=== PATIENT | male | born 1980 | race Caucasian/White ===

== ENCOUNTER 2017-03-04 06:40 | Inpatient (IN) | payer MEDICAID ==
[~2017-03-04] VITALS: Ht 172.7 cm; Wt 73.6 kg
[2017-03-04] MEDS ORDERED: ALBUTEROL SULFATE 2.5 MG/3 ML ONE (07:41)
[2017-03-04] MEDS ORDERED: ALBUTEROL SULFATE 2.5 MG/3 ML NPPB ONE (08:00)
[2017-03-04 08:58] LABS: BLOOD UREA NITROGEN 16 mg/dL (7-18)
[2017-03-04 09:06] LABS: IS PT STATUS REG ER OR PRE ER? YES
[2017-03-04] MEDS ORDERED: SODIUM CHLORIDE FLUSH 10ML SYR IVF ONE (11:00)
[2017-03-04] MEDS ORDERED: FUROSEMIDE 40 MG/4 ML IVPush ONE (11:00)
[2017-03-04] MEDS ORDERED: ASPIRIN 81 MG TABLET CHEW PO ONE (11:00)
[2017-03-04] MEDS ORDERED: NITROGLYCERIN OINT 2%, 1GM TP ONE ×2 (11:00→11:05)
[2017-03-04] MEDS ORDERED: FUROSEMIDE 40 MG/4 ML ONE (11:05)
[2017-03-04] MEDS ORDERED: ASPIRIN 81 MG TABLET CHEW ONE (11:05)
[2017-03-04 13:54] VITALS: BP 146/90
[2017-03-04 16:40] VITALS: BP 144/75
[2017-03-04] MEDS: ENOXAPARIN 40 MG/0.4 ML SQ SCH (16:43)
[2017-03-04] MEDS: LISINOPRIL 10 MG TABLET PO SCH (16:44)
[2017-03-04 16:51] LABS: IS PT STATUS REG ER OR PRE ER? NO
[2017-03-04 16:52] LABS: DAU SCREEN DISCLAIMER
[2017-03-04] MEDS ORDERED: METHOCARBAMOL 750 MG TABLET PO ONE (17:30)
[2017-03-04 17:59] VITALS: BP 134/76
[2017-03-04] MEDS ORDERED: ACETAMINOPHEN 325 MG TABLET ONE (18:38)
[2017-03-04] MEDS: ACETAMINOPHEN 325 MG TABLET PO PRN (18:40)
[2017-03-04] MEDS: CARVEDILOL 6.25 MG TABLET PO SCH (18:40)
[2017-03-04 19:11] VITALS: BP 143/91
[2017-03-04] MEDS ORDERED: PNEUMOCOCCAL 23 VACCINE IM-VACC ONE (20:00)
[2017-03-04 21:24] LABS: IS PT STATUS REG ER OR PRE ER? NO
[2017-03-05 04:00] VITALS: BP 126/86
[2017-03-05] MEDS: ACETAMINOPHEN 325 MG TABLET PO PRN (04:43)
[2017-03-05] MEDS: ASPIRIN 325 MG TABLET EC PO SCH (04:43)
[2017-03-05] MEDS: CARVEDILOL 6.25 MG TABLET PO SCH ×2 (04:43→18:33)
[2017-03-05 05:49] LABS: BLOOD UREA NITROGEN 19 mg/dL (7-18)
[2017-03-05 06:00] LABS: IS PT STATUS REG ER OR PRE ER? NO
[2017-03-05 07:17] VITALS: BP 118/82
[2017-03-05] MEDS: FUROSEMIDE 20 MG/2 ML IVPush SCH (09:18)
[2017-03-05 11:43] LABS: IS PT STATUS REG ER OR PRE ER? NO
[2017-03-05 13:57] VITALS: BP 145/93
[2017-03-05] MEDS: LISINOPRIL 10 MG TABLET PO SCH (14:17)
[2017-03-05 16:24] LABS: IS PT STATUS REG ER OR PRE ER? NO
[2017-03-05] MEDS: ENOXAPARIN 40 MG/0.4 ML SQ SCH (18:35)
[2017-03-05 19:17] VITALS: BP 91/70
[2017-03-05 21:29] LABS: IS PT STATUS REG ER OR PRE ER? NO
[2017-03-06 01:45] VITALS: BP 134/95
[2017-03-06] MEDS: CARVEDILOL 6.25 MG TABLET PO SCH ×2 (06:05→17:32)
[2017-03-06] MEDS: ASPIRIN 325 MG TABLET EC PO SCH (06:06)
[2017-03-06 06:24] LABS: BLOOD UREA NITROGEN 24 mg/dL (7-18)
[2017-03-06] MEDS: LISINOPRIL 10 MG TABLET PO SCH (08:39)
[2017-03-06 08:46] VITALS: BP 135/91
[2017-03-06] MEDS: FUROSEMIDE 20 MG/2 ML IVPush SCH (08:46)
[2017-03-06] MEDS ORDERED: FURO40TA6 PO (11:07)
[2017-03-06] MEDS ORDERED: LISI-167 PO (11:07)
[2017-03-06] MEDS ORDERED: CARV6.2512 PO (11:07)
[2017-03-06] MEDS ORDERED: POTA10TA90 PO (11:08)
[2017-03-06] MEDS ORDERED: SODIUM CHLORIDE 0.9%, 250ML IVBOLUS ONE (13:00)
[2017-03-06 15:05] VITALS: BP 127/75
[2017-03-06] MEDS: ENOXAPARIN 40 MG/0.4 ML SQ SCH (17:32)
[2017-03-06 17:33] VITALS: BP 110/77
== END 2017-03-06 19:03 | disposition home or self-care (01) | DRG 292 ==
LOC: ED 09:40 → EDIP 11:44 → 5SO 13:52
PROVIDERS: ADMIT Family Medicine; ATTEND Family Medicine
DX: I11.0 Hypertensive heart disease with heart failure (principal); E44.1 Mild protein-calorie malnutrition; I50.40 Unspecified combined systolic (congestive) and diastolic (congestive) heart failure; F15.10 Other stimulant abuse, uncomplicated; F12.90 Cannabis use, unspecified, uncomplicated; Z83.3 Family history of diabetes mellitus; Z83.79 Family history of other diseases of the digestive system; D72.829 Elevated white blood cell count, unspecified; Z71.6 Tobacco abuse counseling; Z68.24 Body mass index [BMI] 24.0-24.9, adult
CPT/HCPCS: 36415; 71020; 80048; 80307; 82040; 83735; 83880; 84443; 84484; 85025; 93005; 93306; 94640; 96374; J1650; J1940; J7613; J7050

== ENCOUNTER 2017-04-03 07:22 | Emergency (ER) | payer SELFPAY ==
[~2017-04-03] VITALS: Ht 172.7 cm; Wt 73.9 kg
[~2017-04-03 07:22] MED LIST: CARV6.2512 PO; FURO40TA6 PO; LISI-167 PO; POTA10TA90 PO
[2017-04-03 07:24] VITALS: BP 136/90
== END 2017-04-03 08:53 | disposition home or self-care (01) ==
LOC: ED 08:30
DX: Z00.00 Encounter for general adult medical examination without abnormal findings (principal); Z76.0 Encounter for issue of repeat prescription; I50.9 Heart failure, unspecified
CPT/HCPCS: 99283

== ENCOUNTER 2017-08-07 01:27 | Inpatient (IN) | payer MEDICAID ==
[~2017-08-07] VITALS: Ht 172.7 cm; Wt 76.5 kg
[~2017-08-07 01:27] MED LIST changes: +POTA10TA6 PO; -POTA10TA90 PO
[2017-08-07 02:29] LABS: HEMATOCRIT 47.3 % (39.2-51.8); HEMOGLOBIN 15.6 g/dL (13.7-18.0); WHITE BLOOD COUNT 11.1 x10^3/uL (3.4-10)
[2017-08-07 02:41] LABS: BLOOD UREA NITROGEN 22 mg/dL (7-18)
[2017-08-07 02:45] LABS: IS PT STATUS REG ER OR PRE ER? YES
[2017-08-07] MEDS ORDERED: ENALAPRILAT 1.25 MG/ML, 2ML IV ONE (03:00)
[2017-08-07] MEDS ORDERED: ENALAPRILAT 1.25 MG/ML, 2ML ONE (03:06)
[2017-08-07] MEDS ORDERED: FUROSEMIDE 20 MG/2 ML ONE (03:06)
[2017-08-07] MEDS ORDERED: ACETAMINOPHEN 650 MG/20.3 ML UDC PO PRN (03:30)
[2017-08-07] MEDS ORDERED: ONDANSETRON 2MG/ML, 2ML IVPush PRN (03:30)
[2017-08-07] MEDS ORDERED: LORazepam 2 MG/ML, 1ML IVPush PRN (03:30)
[2017-08-07] MEDS ORDERED: NITROGLYCERIN 0.4 MG BOTTLE (25 TABS) SL PRN (03:30)
[2017-08-07] MEDS ORDERED: hydrALAzine 20 MG/ML, 1ML IVPush PRN (03:30)
[2017-08-07] MEDS ORDERED: SODIUM CHLORIDE FLUSH 10ML SYR IVF PRN (03:30)
[2017-08-07] MEDS ORDERED: ONDANSETRON 2MG/ML, 2ML IV PRN (03:30)
[2017-08-07] MEDS ORDERED: FUROSEMIDE 20 MG/2 ML IVPush ONE (03:30)
[2017-08-07 04:48] VITALS: BP 135/106
[2017-08-07] MEDS ORDERED: BUMETANIDE 0.25 MG/ML, 4ML IV SCH (06:00)
[2017-08-07] MEDS: CARVEDILOL 6.25 MG TABLET PO SCH ×2 (06:14→18:24)
[2017-08-07 06:20] VITALS: BP 124/88
[2017-08-07 08:00] VITALS: BP 145/85
[2017-08-07 08:57] LABS: BLOOD UREA NITROGEN 18 mg/dL (7-18)
[2017-08-07] MEDS: SODIUM CHLORIDE FLUSH 10ML SYR IVF SCH ×2 (09:39→21:46)
[2017-08-07] MEDS: LISINOPRIL 10 MG TABLET PO SCH (09:39)
[2017-08-07] MEDS: POTASSIUM CHLORIDE 10 MEQ TABLET.ER PO SCH (09:39)
[2017-08-07 09:47] LABS: DAU SCREEN DISCLAIMER
[2017-08-07 13:58] VITALS: BP 127/91
[2017-08-07] MEDS ORDERED: OMNIPAQUE 350 MG/ML, 100ML BOTTLE ONE (15:00)
[2017-08-07 15:31] VITALS: BP 146/84
[2017-08-07 19:22] VITALS: BP 132/89
[2017-08-07] MEDS ORDERED: NICOTINE 21 MG/24 HR PATCH.TD24 TD SCH (21:30)
[2017-08-07] MEDS: HEPARIN 5,000 UNITS/ML, 1ML SQ SCH (21:45)
[2017-08-07] MEDS: FUROSEMIDE 20 MG TABLET PO SCH (21:45)
[2017-08-08 03:18] VITALS: BP 123/83
[2017-08-08 05:42] LABS: HEMATOCRIT 45.5 % (39.2-51.8); HEMOGLOBIN 15.7 g/dL (13.7-18.0); WHITE BLOOD COUNT 11.6 x10^3/uL (3.4-10)
[2017-08-08 05:57] LABS: BLOOD UREA NITROGEN 24 mg/dL (7-18)
[2017-08-08] MEDS: CARVEDILOL 6.25 MG TABLET PO SCH (06:23)
[2017-08-08] MEDS: HEPARIN 5,000 UNITS/ML, 1ML SQ SCH ×2 (06:24→13:46)
[2017-08-08 09:29] VITALS: BP 126/84
[2017-08-08] MEDS: SODIUM CHLORIDE FLUSH 10ML SYR IVF SCH (09:42)
[2017-08-08] MEDS: POTASSIUM CHLORIDE 10 MEQ TABLET.ER PO SCH (09:43)
[2017-08-08] MEDS: LISINOPRIL 10 MG TABLET PO SCH (09:43)
[2017-08-08] MEDS: FUROSEMIDE 20 MG TABLET PO SCH (09:43)
[2017-08-08 13:38] VITALS: BP 135/89
[2017-08-08] MEDS ORDERED: LISI-167 PO (14:19)
[2017-08-08] MEDS ORDERED: CARV6.2512 PO (14:19)
[2017-08-08] MEDS ORDERED: POTA10TA6 PO (14:19)
[2017-08-08] MEDS ORDERED: FURO40TA6 PO (14:19)
== END 2017-08-08 16:08 | disposition home or self-care (01) | DRG 292 ==
LOC: ED 02:43 → EDIP 03:27 → 5SO 04:31
PROVIDERS: ADMIT Internal Medicine; ATTEND Internal Medicine
DX: I11.0 Hypertensive heart disease with heart failure (principal); I47.2 Ventricular tachycardia; F15.20 Other stimulant dependence, uncomplicated; I16.1 Hypertensive emergency; I42.0 Dilated cardiomyopathy; F17.210 Nicotine dependence, cigarettes, uncomplicated; R09.02 Hypoxemia; D72.829 Elevated white blood cell count, unspecified; I50.21 Acute systolic (congestive) heart failure; Z91.14 Patient's other noncompliance with medication regimen; Z82.49 Family history of ischemic heart disease and other diseases of the circulatory system
CPT/HCPCS: 36415; 71010; 71275; 80048; 80307; 82040; 83735; 83880; 84484; 85025; 85379; 85610; 85730; 87070; 87205; 93005; 96374; 96375; J1644; Q9967; G0479; J1940

== ENCOUNTER 2017-09-19 20:28 | Emergency (ER) | payer MEDICAID ==
[~2017-09-19] VITALS: Ht 172.7 cm; Wt 80.5 kg
[2017-09-19 21:19] LABS: HEMATOCRIT 42.5 % (39.2-51.8); HEMOGLOBIN 14.6 g/dL (13.7-18.0); WHITE BLOOD COUNT 10.8 x10^3/uL (3.4-10)
[2017-09-19 21:31] LABS: BLOOD UREA NITROGEN 11 mg/dL (7-18)
[2017-09-19 22:20] VITALS: BP 153/93
== END 2017-09-19 22:22 | disposition home or self-care (01) ==
LOC: ED 21:21
DX: G89.29 Other chronic pain (principal); I50.9 Heart failure, unspecified; I11.0 Hypertensive heart disease with heart failure; Z76.0 Encounter for issue of repeat prescription
CPT/HCPCS: 36415; 71020; 80048; 83880; 85025; 93005; 99285

== ENCOUNTER 2017-11-12 04:25 | Emergency (ER) | payer MEDICAID ==
[~2017-11-12] VITALS: Ht 172.7 cm; Wt 75.0 kg
[2017-11-12 04:27] VITALS: BP 150/104
== END 2017-11-12 05:29 | disposition home or self-care (01) ==
LOC: ED 05:13
DX: Z76.0 Encounter for issue of repeat prescription (principal); F17.210 Nicotine dependence, cigarettes, uncomplicated; I50.9 Heart failure, unspecified; I11.0 Hypertensive heart disease with heart failure
CPT/HCPCS: 99283

== ENCOUNTER 2018-06-16 15:38 | Emergency (ER) | payer SELFPAY ==
[~2018-06-16] VITALS: Ht 172.7 cm; Wt 77.2 kg
[2018-06-16 16:11] LABS: BASOPHILS # (AUTO) 0.11 x10^3/uL (0-0.1); BASOPHILS % (AUTO) 1 % (0-1); EOSINOPHILS # (AUTO) 0.06 x10^3/uL (0-0.4); EOSINOPHILS % (AUTO) 1 % (1-7); LYMPHOCYTES % (AUTO) 19 % (22-44); MD NO; MEAN CORPUSCULAR HEMOGLOBIN 29.2 pg (27.5-34.5); MEAN CORPUSCULAR HGB CONC 33.7 g/dL (33.2-36.2); MEAN CORPUSCULAR VOLUME 86.7 fL (81-97); MEAN PLATELET VOLUME 7.4 fL (7.4-10.4); MONOCYTES % (AUTO) 4 % (2-9); NEUTROPHILS # (AUTO) 8.65 x10^3/uL (1.8-6.8); NEUTROPHILS % (AUTO) 77 % (42-75); PLATELET COUNT 355 x10^3/uL (130-400); RED BLOOD COUNT 4.77 x10^6/uL (4.38-5.82); RED CELL DISTRIBUTION WIDTH 14.4 % (9.4-14.8)
[2018-06-16 16:19] LABS: ANION GAP 6 mmol/L (5-15); CALCIUM 8.5 mg/dL (8.5-10.1); CHLORIDE 106 mmol/L (98-107)
[2018-06-16 16:23] LABS: CREATININE 1.09 mg/dL (0.7-1.3); TROPONIN I 0.024 ng/mL (0.000-0.045)
[2018-06-16] MEDS ORDERED: METOPROLOL TARTRATE 50 MG TABLET ONE (17:33)
[2018-06-16] MEDS ORDERED: METOPROLOL TARTRATE 50 MG TABLET PO ONE (18:00)
[2018-06-16 18:37] VITALS: BP 155/110
== END 2018-06-16 18:39 | disposition home or self-care (01) ==
LOC: ED 18:15
DX: R06.00 Dyspnea, unspecified (principal); I50.9 Heart failure, unspecified; I11.0 Hypertensive heart disease with heart failure
CPT/HCPCS: 36415; 71045; 80048; 82040; 82550; 83880; 84484; 85025; 93005; 99285